=== PATIENT | male | born 1970 | race Hispanic/Latino ===

== ENCOUNTER 2025-04-14 12:46 | Emergency (ER) | payer OTHER ==
--- OUTSIDE RECORDS SUMMARY | 2025-04-14 12:48 | XMS REPORT | Continuity of Care Document ---
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 Reg rate rhythm, ABD: Soft/non- tender, EXT: No gross abnormality, NEURO: alert oriented, NEURO: gross movement NL, PSYCH: NL thought content Focused PE Skin Text/Dict Notes See the HPI Re-Evaluation MDM ED Course Medication(s) Ordered Medication(s) Ordered: Anti-Infective Agents Sig/Marisa Start time Last Medication Dose Route Stop Time Status Admin Clindamycin Phosphate 50 ML X1ED STA 09/02 2230 DC 09/02 IV 09/02 2299 2307 Antihistamine Drugs Sig/Marisa Start time Last Medication Dose Route Stop Time Status Admin Diphenhydramine HCl 50 MG X1ED STA 09/02 2231 DC 09/02 IV 09/02 2232 225 Autonomic Drugs Sig/Marisa Start time Last Medication Dose Route Stop Time Status Admin Epinephrine 0.5 MG X1ED STA 09/02 2231 DC 09/02 IM 09/02 2232 230 Eye, Ear, Nose And Throat (Een Sig/Marisa Start time Last Medication Dose Route Stop Time Status Admin Dexamethasone Sodium 10 MG X1ED STA 09/02 2231 DC 09/02 Phosphate IV 09/02 2232 225 Gastrointestinal Drugs Sig/Marisa Start time Last Medication Dose Route Stop Time Status Admin Famotidine 20 MG X1ED STA 09/02 2231 DC 09/02 IV 09/02 2232 225 Patient Discharge Departure Vital Signs/Condition Vital Signs First Documented: Result Date Time Pulse Ox 100 09/02 2247 B/P 169/89 09/02 2247 B/P Mean 115 09/02 2247 Temp 36.7 09/02 2247 Pulse 106 09/02 2247 Resp 09/02 Last Documented: Result Date Time Pulse Ox 100 09/02 2247 B/P 169/89 09/02 2247 B/P Mean 115 09/02 2247 Temp 36.7 09/02 2247 Pulse 106 09/02 2247 Resp 09/02 All vital signs available at the time of this entry have been reviewed. Clinical Impression Clinical Impression Primary Impression: Contact dermatitis Secondary Impressions: Localized hives Disposition Decision Discharge )( Discharged to Home Yes )( Time 235 )( Date 09/02/22 Discharge/Care Plan (Auto) Prescriptions Current Visit Scripts methylPREDNISolone (MEDROL 4 MG DOSEPAK) 4 MG PO ASDIR methylPREDNISolone (MEDROL 4 MG DOSEPAK) 4 MG PO ASDIR #1 PACKET MINOCYCLINE (MINOCIN) 100 MG PO BID MINOCYCLINE (MINOCIN) 100 MG PO BID #20 CAPS Patient Instructions ED General Allergic Reactions Discharge Note I have spoken with the patient and/or caregivers. I have explained the patient's condition, diagnoses and treatment plan based on the information available to me at this time. I have answered the patient's and/or caregiver's questions and addressed any concerns. The patient and/or caregivers have as good an understanding of the patient's diagnosis, condition and treatment plan as can be expected at this point. The vital signs have been stable. The patient's condition is stable and appropriate for discharge from the emergency department. The patient will pursue further outpatient evaluation with the primary care physician or other designated or consulting physician as outlined in the discharge instructions. The patient and/or caregivers are agreeable to this plan of care and follow-up instructions have been explained in detail. The patient and/or caregivers have received these instructions in written format and have expressed an understanding of the discharge instructions. The patient and/or caregivers are aware that any significant change in condition or worsening of symptoms should prompt an immediate return to this or the closest emergency department or a call to 911. at 2359 RPT #:[id number] END OF REPORT [facility] 2020-09-06 00:37:00 [facility] ([facility]) EMERGENCY PROVIDER REPORT REPORT#:[id number] REPORT STATUS: Signed DATE:09/06/20 TIME: 36 PATIENT: LEXUS MAYES UNIT #: [id number] ROOM/BED: AGE: 50 SEX: M PCP PHYS: No Primary or Family Physician SERVICE AUTHOR: Pardeep Masters MD * ALL edits or amendments must be made on the electronic/computer document * HPI-Allergic Reaction General Initial Greet Date/Time 09/05/20 6063 PCP none Presentation Chief Complaint Allergic reaction Review of Systems ROS Statements All systems rev neg except as marked. Focused Review of Systems Constitutional Denies: Chills, Fatigue, Fever, Lethargy, Malaise, Recent wt loss, Weakness - generalized. Eyes Denies: Blurred R, Blurred L, Blurred bilat, Diplopia, Discharge R, Discharge L, Discharge bilat, Eye pain R, Eye pain L, Eye pain bilat, Photophobia, Redness R, Redness L, Redness bilat, Swelling R, Swelling L, Swelling bilat, Visual loss R, Visual loss L, Visual loss bilat, Yellow R, Yellow L, Yellow bilat. Ears/Nose/Throat Denies: Ear drainage R, Ear drainage L, Ear drainage bilat, Ear ringing R, Ear ringing L, Ear ringing bilat, Earache R, Earache L, Earache bilat, Hearing loss R, Hearing loss L, Hearing loss bilat, Mouth pain, Nasal congestion, Nose bleeding, Sinus problem, Sore throat, Throat pain, Throat swelling, Tongue pain, Tongue swelling, Toothache, Voice change. Respiratory Denies: Cough, non-productive, Cough, productive, Dyspnea on exertion, Hemoptysis, Parox nocturnal dyspnea, Pleuritic pain, Shortness of breath, Wheezing. GI Denies: Abdominal pain, Anorexia, Belching, Bloody/tarry stool, Constipation, Diarrhea, Dysphagia, Hematemesis, Hematochezia, Mucousy stool, Melena, Nausea, Rectal pain, Vomiting. Skin Reports: Erythema, Itching, Swelling. Denies: Abrasion, Abscess, Burn, Contusion, Diaphoresis, Jaundice, Laceration, Rash, Ulceration. Allergy/Immun Reports: Allergic reaction, Hives, Itching. Denies: Anaphylaxis, Rhinorrhea, Sneezing. Neurologic Denies: Abnormal movement, Bladder dysfunction, Bowel dysfunction, Change LOC, Confusion, Dizziness, Focal weakness, Generalized weakness, Headache, Lightheaded, Numbness, Problem walking, Seizure, Shaking, Slurred speech, Spinning sensation, Syncope, Tingling, Unable to speak, Vision change. Past Medical History - Adult Stated Complaint SWELLING/REDNESS/TRUNK/ARMS/HANDS Allergies Coded Allergies: No Known Allergies (12/04/18) Home Medications Reported Medications No Known Home Medications Calculated suicide risk level: No risk Pt reports no significant: Past medical history, Past surgical history, Family history, Social history Additional Medical History Previous abscess on arm Alcohol Use Denies EtOH use Drug Use Denies recreational drugs Smoking status for patients 13 years old or older: Former Smoker Physical Exam Vital Signs Vital Signs First Documented: Result Date Time Pulse Ox 99 09/05 2344 B/P 147/88 09/05 2344 B/P Mean 107 09/05 2343 Temp 36.7 09/05 2343 Pulse 96 09/05 2344 Resp 18 09/05 2343 Last Documented: Result Date Time Pulse Ox 99 09/05 2344 B/P 147/88 09/05 2344 B/P Mean 107 09/05 2343 Temp 36.7 09/05 2343 Pulse 96 09/05 234 Resp 18 09/05 2343 Review of Vital Signs Reviewed Focused PE General/Const General/Const Awake, Alert Resp/Chest Respiratory/Chest Breath sounds NL, Breath sounds = bilat, No respiratory distress Cardiovascular Cardiovascular Heart rate NL, Regular rhythm, Heart sounds NL Skin Text/Dict Notes Severe rash to left chest with moderate swelling and induration encompassing almost the entire left pectoral region with erythema and warmth, associated lesions to upper extremities, face, and injected sclera. Interpretation Diagnostics Lab Results Interpretation Results Laboratory Tests 09/06/20 0145: [Embedded Image Not Available] 09/06/20 010: [Embedded Image Not Available] Laboratory Tests: 09/06 0145 0105 0100 Chemistry Sodium (134 - 147 mEq/L) 136 Potassium (3.4 - 5.0 mEq/L) 4.1 Chloride (100 - 108 mEq/L) 109 H Carbon Dioxide (21 - 33 mEq/l) 24 Anion Gap (0 - 20) 7 BUN (7 - 18 mg/dL) 10 Creatinine (0.6 - 1.3 mg/dL) 1.1 Glomerular Filtr Rate (90 - 95) 70.3 L Glucose (70 - 110 mg/dL) 114 H Lactic Acid (0.4 - 1.9 mmol/L) 0.5 Calcium (8.0 - 10.5 mg/dL) 8.5 Total Bilirubin (0.0 - 1.0 mg/dL) 0.60 AST (15 - 37 IUnit/L) 21 ALT (30 - 65 IUnit/L) 30 Total Alk Phosphatase (20 - 125 IUnit/L) 59 C-Reactive Protein (<10.0 mg/L) < 4.0 Total Protein (6.4 - 8.2 g/dL) 6.4 Albumin (3.4 - 5.0 g/dL) 3.70 Hematology WBC (4.5 - 11.0 x10 3/uL) 8.5 RBC (4.00 - 5.60 x10 6/uL) 4.78 Hgb (12.5 - 16.9 g/dL) 14.8 Hct (37.5 - 50.7 %) 42.5 MCV (81.0 - 99.0 fL) 88.9 MCH (27.0 - 33.0 pg) 31.0 MCHC (33.0 - 37.0 g/dL) 34.8 RDW (11.5 - 14.5 %) 12.9 Plt Count (150 - 400 x10 3/uL) 308 MPV (7.0 - 9.0 fL) 10.7 H Neut % (Auto) (56.0 - 77.0 %) 70.3 Lymph % (Auto) (14.0 - 32.0 %) 19.5 Trinity % (Auto) (4.8 - 9.0 %) 6.4 Eos % (Auto) (0.3 - 3.7 %) 3.4 Baso % (Auto) (0.0 - 2.0 %) 0.2 Neut # (Auto) (2.0 - 7.6 x10 3/uL) 5.93 Lymph # (Auto) (1.0 - 3.8 x10 3/uL) 1.65 Trinity # (Auto) (0.1 - 0.8 x10 3/uL) 0.54 Eos # (Auto) (0.0 - 0.2 x10 3/uL) 0.29 H Baso # (Auto) (0.0 - 0.2 x10 3/uL) 0.02 Abs Immat Gran (auto) (0.00 - 0.03 x10 3/uL) 0.02 Add Manual Diff NO Immature Gran % (0.0 - 2.0 %) 0.2 Nucleated RBC % (0 - 0 %) 0.0 Nucleated RBCs # (Man) (0.0 - 0.1 x10 3/uL) 0.00 Re-Evaluation MDM Free Text MDM Notes Free Text MDM Notes Patient was to be admitted due to severity of his rash which would unlikely resolve with outpatient therapy. Patient decided to leave without notifying anyone. Prescriptions could not be prescribed as patient eloped. Attempts to contact the patient were unsuccessful )( Re-Evaluation/Progress #1 Time of Re-Eval 0151 )( Re-Eval Status Improved ((reportedly by RN)) ED Course Medication(s) Ordered Medication(s) Ordered: Antihistamine Drugs Sig/Marisa Start time Last Medication Dose Route Stop Time Status Admin Diphenhydramine HCl 50 MG Q6H 09/06 0400 AC IV 09/07 0359 Diphenhydramine HCl 50 MG X1ED STA 09/06 8 DC 09/06 IV 09/06 0010 0047 Electrolytic, Caloric, And Fabby Sig/Marisa Start time Last Medication Dose Route Stop Time Status Admin Sodium Chloride 0 ASDIR PRN 09/06 0015 AC IV 09/06 2304 Hormones And Synthetic Substit Sig/Marisa Start time Last Medication Dose Route Stop Time Status Admin Methylprednisolone 40 MG Q6H 09/06 0400 AC Sodium Succinate IV 09/06 2201 Methylprednisolone 125 MG X1ED STA 09/06 000 DC 09/06 Sodium Succinate IV 09/06 0010 0048 Patient Discharge Departure Vital Signs/Condition Vital Signs First Documented: Result Date Time Pulse Ox 99 09/05 2344 B/P 147/88 09/05 2343 B/P Mean 107 09/05 2343 Temp 36.7 09/05 2343 Pulse 96 09/05 234 Resp 18 09/05 2343 Last Documented: Result Date Time Pulse Ox 99 09/05 2343 B/P 147/88 09/05 2343 B/P Mean 107 09/05 2343 Temp 36.7 09/05 2343 Pulse 96 09/05 2343 Resp 18 09/05 2343 All vital signs available at the time of this entry have been reviewed. Condition not applicable - pt eloped Clinical Impression Clinical Impression Primary Impression: SEVERE CONTACT DERMATITIS Secondary Impressions: Poison pastor dermatitis Disposition Decision Other )( Time 0150 )( Date 09/06/20 Against Medical Advice elopement Discharge/Care Plan (Auto) Prescriptions Current Visit Scripts No Known Home Medications at 1406 RPT #:[id number] END OF REPORT [facility] 2018-12-04 06:13:00 [facility] ([facility]) EMERGENCY PROVIDER REPORT REPORT#:[id number] REPORT STATUS: Signed DATE:12/04/18 TIME: 612 PATIENT: LEXUS MAYES UNIT #: [id number] ROOM/BED: AGE: 48 SEX: M PCP PHYS: No Primary or Family Physician SERVICE AUTHOR: Isaiah Loyd RELIEF WORKER * ALL edits or amendments must be made on the electronic/computer document * HPI-Rash/Abscess/Cellulitis General Confirmed Patient Yes Initial Greet Date/Time 12/04/18 0557 Presentation Chief Complaint Tattoo infection Hx Obtained From Patient Onset Occurred One week ago Symptom Duration Since onset Progression since Onset Gradually worsening Location Lower extremity Quality Painful Associated with Denies: Fever. Free Text HPI Notes Free Text HPI Notes 48 yo M w/ PMHx of abscess on arm c/o infected tattoo at R lateral lower leg onset 1 week ago. Pt states he got the tattoo 2 weeks ago and noticed signs of infection 1 week ago. Pt took 3 tablets of unknown ABx prescribed to his mother. Pt believed there was initial improvement of sxs but noticed sxs worsening recently. He denies fever, chills, and any other assoc sxs. Portions of this section were scribed by Danny Reid on 12/04/18 at 0619 Review of Systems ROS Statements All systems rev neg except as marked. Focused Review of Systems Constitutional Denies: Chills, Fever. Skin Reports: Erythema (w/ pain). Portions of this section were scribed by Danny Reid on 12/04/18 at 0613 Past Medical History - Adult Stated Complaint INFECTED TATTOO ON RIGHT CALF Allergies Coded Allergies: No Known Allergies (12/04/18) Home Medications Reported Medications No Known Home Medications Pt reports no significant: Past surgical history Additional Medical History Previous abscess on arm Alcohol Use Denies EtOH use Drug Use Denies recreational drugs Smoking status for patients 13 years old or older: Never Smoker Portions of this section were scribed by Danny Reid on 12/04/18 at 0613 Physical Exam Vital Signs Vital Signs First Documented: Result Date Time Pulse Ox 99 04/ 0559 B/P 143/85 04/08 0559 B/P Mean 104 04/08 0559 O2 Delivery Room air 04/ 0559 Temp 36.8 04/08 0559 Pulse 85 04/08 0559 Resp 14 04/ 0559 Last Documented: Result Date Time Pulse Ox 99 04/ 0559 B/P 143/85 04/08 0559 B/P Mean 104 04/08 0559 O2 Delivery Room air 04/08 0559 Temp 36.8 04/08 0559 Pulse 85 04/08 0559 Resp 14 04/08 0559 Review of Vital Signs Reviewed Focused PE General/Const General/Const Awake, Alert, No acute distress, Well appearing, Well developed , Well hydrated, Well nourished, Cooperative Resp/Chest Respiratory/Chest Breath sounds NL, No respiratory distress, No rales, No rhonchi, No wheezing Cardiovascular Cardiovascular Heart rate NL, Regular rhythm, Heart sounds NL MS Upper Extrem Upper Extremity/MS Full range of motion MS Lower Extrem Lower Ext/Pelvis/MS Full range of motion Skin Text/Dict Notes Erythema and tenderness to palpation at R lateral lower leg at location of tattoo. Non-circumferential, no fluctuance or induration. Neurologic Neurologic Oriented X3, Speech NL Portions of this section were scribed by Danny Reid on 12/04/18 at 0619 Interpretation Diagnostics Point of Care Testing Pulse Oximetry Pulse Ox % 99 On: Room air Interpretation Interpreted by sd, Pulse oximetry normal Time 0559 Portions of this section were scribed by Danny Reid on 12/04/18 at 0613 Re-Evaluation MDM Re-Evaluation/Progress Re-Evaluation/Progress Text/Dict Note Discussed diagnosis and prescriptions w/ pt. Plan to D/C home f/u w/ PCP. Provided reasons to return to the ED. Pt agrees w/ plan. Time of Re-Eval 0613 Re-Eval Status Resolved Portions of this section were scribed by Danny Reid on 12/04/18 at 0613 Patient Discharge Departure Vital Signs/Condition Vital Signs First Documented: Result Date Time Pulse Ox 99 04/08 0559 B/P 143/85 04/08 0559 B/P Mean 104 04/08 0559 O2 Delivery Room air 04/08 0559 Temp 36.8 04/08 0559 Pulse 85 04/08 0559 Resp 14 04/08 0559 Last Documented: Result Date Time Pulse Ox 99 04/08 0559 B/P 143/85 04/08 0559 B/P Mean 104 04/08 0559 O2 Delivery Room air 04/08 0559 Temp 36.8 04/08 0559 Pulse 85 04/08 0559 Resp 14 04/08 0559 All vital signs available at the time of this entry have been reviewed. Condition Stable Clinical Impression Clinical Impression Primary Impression: Cellulitis Disposition Decision Discharge )( Discharged to Home Yes )( Time 0615 )( Date 12/04/18 Discharge/Care Plan Counseled Regarding Diagnosis, Prescriptions, Need for follow-up, When to return to ED Prescriptions Doxycycline and keflex Prescriptions Reviewed Risks, Benefits, Alternative treatment Supervising Physician Note Scribe Statement Danny Reid, 12/04/18 0613, scribing for and in the presence of [Isaiah Loyd NP]. Signed By: Danny Reid, 12/04/18612 Provider Scribed Statement I personally performed the services described in this documentation and reviewed the documentation that was dictated to the scribe(s) in my presence, and it accurately records my words and actions. Isaiah Loyd, 12/04/18 Portions of this section were scribed by Danny Redi on 12/04/18 at 0613 at 0639 [facility] #:[id number] END OF REPORT [facility] 2018-12-04 06:13:00 [facility] ([facility]) EMERGENCY PROVIDER REPORT REPORT#:[id number] REPORT STATUS: Signed DATE:12/04/18 TIME: 612 PATIENT: LEXUS MAYES UNIT #: [id number] ROOM/BED: AGE: 48 SEX: M PCP PHYS: No Primary or Family Physician SERVICE AUTHOR: Isaiah Loyd RELIEF WORKER * ALL edits or amendments must be made on the electronic/computer document * Isaiah Loyd 12/04/18 0613: HPI-Rash/Abscess/Cellulitis General Confirmed Patient Yes Presentation Chief Complaint Tattoo infection Hx Obtained From Patient Onset Occurred One week ago Symptom Duration Since onset Progression since Onset Gradually worsening Location Lower extremity Quality Painful Associated with Denies: Fever. Free Text HPI Notes Free Text HPI Notes 48 yo M w/ PMHx of abscess on arm c/o infected tattoo at R lateral lower leg onset 1 week ago. Pt states he got the tattoo 2 weeks ago and noticed signs of infection 1 week ago. Pt took 3 tablets of unknown ABx prescribed to his mother. Pt believed there was initial improvement of sxs but noticed sxs worsening recently. He denies fever, chills, and any other assoc sxs. Portions of this section were scribed by Danny Reid on 12/04/18 at 0619 Review of Systems ROS Statements All systems rev neg except as marked. Focused Review of Systems Constitutional Denies: Chills, Fever. Skin Reports: Erythema (w/ pain). Portions of this section were scribed by Danny Reid on 12/04/18 at 0613 Past Medical History - Adult Stated Complaint INFECTED TATTOO ON RIGHT CALF Allergies Coded Allergies: No Known Allergies (12/04/18) Home Medications Reported Medications No Known Home Medications Pt reports no significant: Past surgical history Additional Medical History Previous abscess on arm Alcohol Use Denies EtOH use Drug Use Denies recreational drugs Smoking status for patients 13 years old or older: Never Smoker Portions of this section were scribed by Danny Reid on 12/04/18 at 0613 Physical Exam Vital Signs Vital Signs First Documented: Result Date Time Pulse Ox 99 12/04 0559 B/P 143/85 12/04 0559 B/P Mean 104 12/04 0459 O2 Delivery Room air 12/04 558 Temp 36.8 12/04 0459 Pulse 85 12/04 0559 Resp 14 12/04 0459 Last Documented: Result Date Time Pulse Ox 99 12/04 0459 B/P 143/85 12/04 0559 B/P Mean 104 12/04 558 O2 Delivery Room air 12/04 558 Temp 36.8 12/04 558 Pulse 85 12/04 05 Resp 14 12/04 0559 Review of Vital Signs Reviewed Focused PE General/Const General/Const Awake, Alert, No acute distress, Well appearing, Well developed , Well hydrated, Well nourished, Cooperative Resp/Chest Respiratory/Chest Breath sounds NL, No respiratory distress, No rales, No rhonchi, No wheezing Cardiovascular Cardiovascular Heart rate NL, Regular rhythm, Heart sounds NL MS Upper Extrem Upper Extremity/MS Full range of motion MS Lower Extrem Lower Ext/Pelvis/MS Full range of motion Skin Text/Dict Notes Erythema and tenderness to palpation at R lateral lower leg at location of tattoo. Non-circumferential, no fluctuance or induration. Neurologic Neurologic Oriented X3, Speech NL Portions of this section were scribed by Danny Reid on 12/04/18 at 0619 Interpretation Diagnostics Point of Care Testing Pulse Oximetry Pulse Ox % 99 On: Room air Interpretation Interpreted by me, Pulse oximetry normal Time 0559 Portions of this section were scribed by Danny Reid on 12/04/18 at 0613 Re-Evaluation MDM Re-Evaluation/Progress Re-Evaluation/Progress Text/Dict Note Discussed diagnosis and prescriptions w/ pt. Plan to D/C home f/u w/ PCP. Provided reasons to return to the ED. Pt agrees w/ plan. Time of Re-Eval 0613 Re-Eval Status Resolved Portions of this section were scribed by Danny Reid on 12/04/18 at 0613 Patient Discharge Departure Vital Signs/Condition Vital Signs First Documented: Result Date Time Pulse Ox 99 12/04 0459 B/P 143/85 12/04 0459 B/P Mean 104 12/04 0459 O2 Delivery Room air 12/04 558 Temp 36.8 12/04 558 Pulse 85 12/04 05 Resp 14 12/04 0459 Last Documented: Result Date Time Pulse Ox 99 12/04 558 B/P 143/85 12/04 558 B/P Mean 104 12/04 558 O2 Delivery Room air 12/04 558 Temp 36.8 12/04 558 Pulse 85 12/04 558 Resp 14 12/04 558 All vital signs available at the time of this entry have been reviewed. Condition Stable Clinical Impression Clinical Impression Primary Impression: Cellulitis Disposition Decision Discharge )( Discharged to Home Yes )( Time 0615 )( Date 12/04/18 Discharge/Care Plan Counseled Regarding Diagnosis, Prescriptions, Need for follow-up, When to return to ED Prescriptions Doxycycline and keflex Prescriptions Reviewed Risks, Benefits, Alternative treatment Supervising Physician Note Scribe Statement Danny Reid, 12/04/18 0613, scribing for and in the presence of [Isaiah Loyd NP]. Signed By: Danny Reid, 12/04/18612 Provider Scribed Statement I personally performed the services described in this documentation and reviewed the documentation that was dictated to the scribe(s) in my presence, and it accurately records my words and actions. Isaiah Loyd, 12/04/18 Portions of this section were scribed by Danny Reid on 12/04/18 at 0613 Denis Ledbetter 12/11/182047: HPI-Rash/Abscess/Cellulitis General Initial Greet Date/Time 12/04/18 0557 Physical Exam Vital Signs Vital Signs Patient Discharge Departure Vital Signs/Condition Vital Signs Supervising Physician Note MidLv Saw Pt Alone I have reviewed the PA/RELIEF WORKER's note and plan of care. I was available for consultation as needed at all times during the patient's visit in the emergency department. I agree with the clinical impression, plan and disposition. at 0639 at 2047 RPT #:[id number] END OF REPORT [facility]
[2025-04-14] MEDS ORDERED: LORazepam 2 MG/ML VIAL ONE (13:28)
[2025-04-14] MEDS ORDERED: NA CHLORIDE 0.9% 500 ML ONE (13:29)
--- NOTE | 2025-04-14 13:45 | RAD REPORT ---
EXAM: CT brain without contrast HISTORY: headache, AMS COMPARISON: None TECHNIQUE: Multiple contiguous axial images were obtained and a CT of the brain without contrast. Sag ittal and coronal reformats were performed. One or more of the following dose reduction techniques were used: Automated exposure control, adjust ment of the mA and/or kV according to patient size, and/or iterative reconstruction. FINDINGS: No evidence of hydrocephalus, intracranial hemorrhage, or extra-axial fluid collection. The brain is normal in morphology. No evidence of midline shift or areas of brain edema. The calvarium is intact. The visualized paranasal sinuses and mastoid air cells are essentially clear . IMPRESSION: No evidence of acute intracranial abnormality.
[2025-04-14 14:18] LABS: Absolute Lymphocytes (CBC) 1.0 K/uL (0.7-4.9); Hematocrit 42.2 % (39.6-49.0); Hemoglobin 14.8 g/dL (13.6-17.9); MCH 30.5 pg (27.0-35.0); MCHC 35.0 g/dL (32.0-36.0); MCV 87.0 fL (80-100); MPV 8.3 fL (7.6-11.3); Nucleated RBC Absolute Count 0.0 (0-0); Nucleated Red Blood Cells % 0.0 % (0-0); RBC Red Blood Cell Count 4.85 M/uL (4.33-5.43); White Blood Count 8.30 thou/uL (4.3-10.9)
[2025-04-14 14:30] LABS: PT Prothrombin Time 13.2 SECONDS (10-13.0); Protime INR 1.17
[2025-04-14 14:31] LABS: PTT, Activated Partial Thromb 34.5 SECONDS (27.2-37.4)
[2025-04-14 14:47] LABS: ALT/SGPT 28 U/L (16-61); AST/SGOT 17 U/L (15-37); Albumin 3.9 g/dL (3.4-5.0); Albumin/Globulin Ratio 1.1 (1.1-1.8); Alkaline Phosphatase 79 U/L (45-117); Anion Gap 8.7 mEq/L (5.0-15.0); BUN Blood Urea Nitrogen 16 mg/dL (7-18); Globulin 3.5 g/dL (2.3-3.5); Glucose Level 170 mg/dL (74-106); Potassium 3.7 mEq/L (3.5-5.1)
[2025-04-14 14:49] LABS: Bilirubin Indirect, Calculated 0.4 mg/dL (0.2-0.8)
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
--- NOTE | 2025-04-14 15:26 | ER ---
Nurse's Notes [facility] Name: Basil Deleon Age: 54 yrs Sex: Male : 1970 Arrival Date: 04/14/2025 Time: 12:46 Bed 14 Private MD: Diagnosis: Anxiety disorder, unspecified;Post-traumatic stress disorder (PTSD) Presentation: 04/14 12:39 Chief complaint: EMS states: PANICK ATTACK WHILE DRIVING STATES SUFFERS FROM PTSD. db FEELS ANXIOUS NOW. Coronavirus screen: Client denies travel out of the [place] in the last 14 days. At this time, the client does not indicate any symptoms associated with coronavirus-19. Ebola Screen: Patient negative for fever greater than or equal to 101.5 degrees Fahrenheit, and additional compatible Ebola Virus Disease symptoms Patient denies exposure to infectious person. Patient denies travel to an Ebola-affected area in the 21 days before illness onset. No symptoms or risks identified at this time. Initial Sepsis Screen: Does the patient meet any 2 criteria? No. Patient's initial sepsis screen is negative. Does the patient have a suspected source of infection? No. Patient's initial sepsis screen is negative. Risk Assessment: Do you want to hurt yourself or someone else? Patient reports no desire to harm self or others. Onset of symptoms was April 14, 2025. Care prior to arrival: Glucose check: 250. 12:39 Method Of Arrival: EMS: [facility] db 12:39 Acuity: BRAYDEN 3 db Triage Assessment: 12:39 General: Appears in no apparent distress. comfortable, Behavior is cooperative, db anxious. Pain: Denies pain. Neuro: Level of Consciousness is awake, alert, confused, Oriented to person, place, time, situation. Historical: - Allergies: 12:39 UNKNOWN ALLERGY TO ANTIBIOTIC; db - PMHx: 12:39 Hypertensive disorder; db - PSHx: 12:39 Operative procedure on knee; db - Immunization history:: Adult Immunizations unknown. - Infectious Disease History:: Denies. - Social history:: Smoking status: unknown Patient uses. - Family history:: not pertinent. - Hospitalizations: : No recent hospitalization is reported. Screenin:12 [facility] ED Fall Risk Assessment (Adult) History of falling in the last 3 months, db including since admission No falls in past 3 months (0 pts) Confusion or Disorientation No (0 pts) Intoxicated or Sedated No (0 pts) Impaired Gait No (0 pts) Mobility Assist Device Used No (0 pt) Altered Elimination No (0 pt) Score/Fall Risk Level 0 - 2 = Low Risk Oriented to surroundings, Maintained a safe environment. Abuse screen: Denies threats or abuse. Denies injuries from another. Nutritional screening: No deficits noted. Tuberculosis screening: No symptoms or risk factors identified. Assessment: 13:40 Reassessment: Patient appears in no apparent distress at this time. Patient and/or db family updated on plan of care and expected duration. Pain level reassessed. Patient is alert, oriented x 3, equal unlabored respirations, skin warm/dry/pink. NOTIFIED PROVIDER PT REFUSED TO GIVE A URINE SPECIMEN Patient denies pain at this time. General: Appears in no apparent distress. comfortable, Behavior is cooperative, anxious. Neuro: Level of Consciousness is awake, alert, obeys commands, Oriented to person, place, time, situation. 14:30 Reassessment: Patient appears in no apparent distress at this time. Patient and/or db family updated on plan of care and expected duration. Pain level reassessed. Patient is alert, oriented x 3, equal unlabored respirations, skin warm/dry/pink. Respiratory: Airway is patent Respiratory effort is even, unlabored, Respiratory pattern is regular, symmetrical. 15:39 Reassessment: Patient appears in no apparent distress at this time. Patient and/or db family updated on plan of care and expected duration. Pain level reassessed. Patient is alert, oriented x 3, equal unlabored respirations, skin warm/dry/pink. Vital Signs: 12:39 BP 161 / 112; Pulse 104; Resp 18; Temp 99.2; Pulse Ox 99% ; Weight 92.99 kg; Height 5 db ft. 8 in. ; Pain 0/10; 14:00 BP 140 / 97; Pulse 84; Resp 18; Pulse Ox 99% ; db 14:46 BP 133 / 87; Pulse 72; Pulse Ox 97% on R/A; ap3 15:00 BP 138 / 95; Pulse 69; Resp 16; Pulse Ox 98% on R/A; db 12:39 Body Mass Index 31.17 (92.99 kg, 172.72 cm) db 12:39 Pain Scale: Adult db ED Course: 12:39 Arm band placed on Patient placed in an exam room. db 12:47 Patient arrived in ED. eb 12:47 Eric Liu MD is Attending Physician. rn 13:01 Soledad Mustafa, RN is Primary Nurse. db 13:03 Triage completed. db 13:24 CT Head Brain wo Cont In Process Unspecified. EDMS 13:39 Initial lab(s) drawn, by me, sent to lab. EKG done. Inserted saline lock: 22 gauge in db left hand, using aseptic technique. Blood collected. Flushed with 10 mL NS. 15:25 Asim Chanel MD is Referral Physician. rn 15:39 Patient has correct armband on for positive identification. Bed in low position. Call db light in reach. Side rails up X 1. Provided Education on: DISCHARGE AND FOLLOWUP. Pulse ox on. NIBP on. Warm blanket given. Pillow given. 15:39 No provider procedures requiring assistance completed. IV discontinued, intact, db bleeding controlled, No redness/swelling at site. Administered Medications: 13:39 Drug: Ativan IVP 1 mg IVP once Route: IVP; Site: left hand; db 15:42 Follow up: Response: No adverse reaction db 13:39 Drug: NS 0.9% IV 500 ml IV at bolus once; to be given as a bolus over 30 minutes Route: db IV; Rate: bolus; Site: left hand; 15:42 Follow up: Response: No adverse reaction; IV Status: Completed infusion; IV Intake: db 500ml Medication: 15:39 VIS not applicable for this client. db Intake: 15:42 IV: 500ml; Total: 500ml. db Outcome: 15:26 Discharge ordered by . rn 15:39 Discharged to home ambulatory, with family, db 15:39 Condition: stable 15:39 Discharge instructions given to patient, family, Instructed on discharge instructions, follow up and referral plans. 15:42 Patient left the ED. db Signatures: Dispatcher [employer] EDMO Eric Liu MD MD rn Prokisch, Amanda RN RN ap3 Yvette Almanza Danielle, RN RN db Corrections: (The following items were deleted from the chart) 15:42 15:39 Reassessment: Patient appears in no apparent distress at this time. Patient db and/or family updated on plan of care and expected duration. Pain level reassessed. Patient is alert, oriented x 3, equal unlabored respirations, skin warm/dry/pink. db
[2025-04-14 19:59] VITALS: BP 138/95; O2SAT 98
== END 2025-04-14 15:42 | disposition home or self-care (01) ==
LOC: ER 12:46
DX: F41.9 Anxiety disorder, unspecified (principal); F43.10 Post-traumatic stress disorder, unspecified
CPT/HCPCS: 96361; 93005; 85025; 80048; 36415; 85610; 80076; 85730; 70450; 96374; 99284; 80143; 80179; 82077; J7040